=== PATIENT | male | born 1935 ===

== ENCOUNTER 2018-01-02 08:51 | Day surgery (SDC) | payer MEDICARE ==
[2018-01-02] MEDS ORDERED: Midazolam 2 MG/2 ML VIAL ONE (09:50)
[2018-01-02] MEDS ORDERED: Verapamil 2 ML ONE (10:10)
[2018-01-02] MEDS ORDERED: Nitroglycerin 50mg in D5W 50 MG/250 ML BOTTLE IV ONE (10:11)
[2018-01-02] MEDS ORDERED: Lidocaine 4% (Laryng-O-Jet) Kit MM ONE (10:12)
[2018-01-02 10:50] VITALS: BMI 34.4
[2018-01-02] MEDS ORDERED: Sodium Chloride 0.9% 500 ML IV SCH (11:30)
--- NOTE | 2018-01-03 01:49 | CARDCATH ---
PROCEDURE DATE: 01/02/2018 INDICATIONS: Mr. Jovi Zuniga is a 82-year-old male who was referred to me for evaluation of symptoms of unstable angina and a prior noninvasive stress test which was suggestive of ischemia in the lateral circumflex artery. 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 PROCEDURE PERFORMED: Left heart catheterization with selective left and right coronary angiogram, left distal radial approach, 6-[place] left radial arterial access, wrist band for hemostasis. TECHNIQUE OF PROCEDURE: After obtaining informed consent, the patient was brought to the cardiac catheterization suite in post-absorptive and non-sedated state. The patient was prepped and draped in the usual sterile fashion. A 2% lidocaine was used for infiltration of anesthesia. Using modified Seldinger technique, a 6-[place] sheath was introduced into the left distal radial artery. Subsequently, under fluoroscopic guidance, over a J-wire, JR4 catheter was used to engage the right coronary and angiograms were obtained for orthogonal views. Subsequently over a J-wire, a [place] catheter was used to engage the left coronary system. Angiogram was obtained for orthogonal views. Subsequently, a pigtail catheter was used to cross the aortic valve and LV gram was obtained in the FRENCH view. Pullback gradient was not reviewed. CORONARY ANATOMY: Left main is a large-sized vessel that bifurcates into LAD and left circumflex artery. LAD is a large-sized vessel, gives off two medium-sized diagonal branches. Past the diagonal branch, the patient has moderate 55% stenosis. Left circumflex runs in the AV groove and the left has a mid nonobstructive 40% stenosis, gives off obtuse marginal branch and it has 60% stenosis, RCA approximately 45% to 50% stenosis, right dominant circulation. IMPRESSION: Left ventricular ejection fraction 55% to 60%. EDP elevated at 40 mmHg, nonobstructive coronary artery disease. RECOMMENDATIONS: Continue guideline-directed therapy for diastolic CHF and nonobstructive coronary artery disease. Maximo Cameron MD
== END 2018-01-02 14:30 | disposition home or self-care (01) ==
LOC: C.CATHLAB 08:51
PROVIDERS: ATTEND Internal Medicine Interventional Cardiology
DX: I25.118 Atherosclerotic heart disease of native coronary artery with other forms of angina pectoris (principal); I10 Essential (primary) hypertension; E78.5 Hyperlipidemia, unspecified; I35.0 Nonrheumatic aortic (valve) stenosis; J43.9 Emphysema, unspecified; G20 Parkinson's disease; E11.9 Type 2 diabetes mellitus without complications